=== PATIENT | female | born 1950 | race Two or more races ===

== ENCOUNTER 2025-07-06 12:03 | Inpatient (IN) | payer OTHER ==
[~2025-07-06] VITALS: Ht 170.2 cm; Wt 85.3 kg
[~2025-07-06 12:03] MED LIST: ATACAND4 MG PO; CANDESARTAN CILE4 MG PO; ELIQUIS5 MG PO; LEVOXYL25 MCG PO; PLAVIX75 MG PO; SINGULAIR 10MG10 MG PO; SYNTHROID50 MCG PO; ZYRTEC10 MG PO; [UNRECOGNIZED DRUG - OTHER] PO
[2025-07-06] MEDS ORDERED: CARDIZEM LA240 MG (12:18)
[2025-07-06] MEDS ORDERED: 0.9 % SODIUM CHLORIDE 1,000 ML IV SCH (12:45)
[2025-07-06] MEDS ORDERED: FAMOTIDINE/PF 20 MG/2 ML VIAL IV PUSH ONE (13:00)
[2025-07-06] MEDS ORDERED: ONDANSETRON HCL 2 MG/ML VIAL IV ONE ×2 (13:00→23:40)
[2025-07-06 13:06] LABS: BASO % 0.2 % (0.1-1.2); EOS # 0.00 (0.04-0.54); EOS % 0.0 % (0.7-7.0); LYMPH # 0.49 (1.18-3.74); LYMPH % 2.1 % (19.3-53.1); MEAN PLATELET VOLUME 11.80 fl (9.4-12.4); MONO # 0.60 (0.24-0.82); MONO % 2.6 % (4.7-12.5); NEUT # 22.01 (1.56-6.13); NEUT % 94.0 % (34.0-71.1); RED CELL DISTRIBUTION WIDTH 13.4 % (11.6-14.4)
[2025-07-06 13:29] LABS: BUN CREA RATIO 10.0 (7.0-25.0); CREATININE SERUM 1.42 mg/dL (0.55-1.02); GFR 36.16; GLUCOSE FASTING 113.0 mg/dL (65-100); OSMOLALITY SERUM 281.0 MOSM/KG (275-295)
[2025-07-06 13:49] LABS: COVID-19 AG NEGATIVE (NEGATIVE)
[2025-07-06 14:05] LABS: URINE APPEARANCE Clear; URINE BILIRRUBIN Negative (NEGATIVE); URINE BLOOD Small; URINE COLOR Yellow; URINE GLUCOSE Negative (NEGATIVE); URINE KETONE Negative (NEGATIVE); URINE LEUKOCYTE Negative; URINE NITRATE Negative; URINE PROTEIN Negative (NEGATIVE); URINE UROBILINOGEN 0.2 E.U./dl
[2025-07-06 14:07] LABS: URINE BACTERIA 21.6 uL (0.0-1933); URINE EPITHELIAL CELLS 2.6 uL (0.0-38.8); URINE RBC 61.4 uL (0.0-20.8); URINE WBC 22.5 uL (0.0-23.2)
[2025-07-06 14:33] LABS: URINE CAST 0.00 uL (0.0-1.40)
[2025-07-06] MEDS ORDERED: DILTIAZEM HCL 125 MG in 0.9 % SODIUM CHLORIDE 100 ML IV SCH (16:00)
[2025-07-06] MEDS ORDERED: DILTIAZEM HCL 25 MG/5 ML VIAL IV ONE (16:00)
[2025-07-06] MEDS ORDERED: LABETALOL HCL 200 MG/40 ML VIAL IV ONE (16:30)
[2025-07-06] MEDS ORDERED: levoFLOXacin IN DEXTROSE 5 % 500MG/100ML PIGGYBAG IV ONE (17:00)
[2025-07-06] MEDS ORDERED: LEVALBUTEROL HCL 1.25 MG/3 ML SOLUTION IH ONE (17:00)
[2025-07-06 18:22] LABS: ALT/SGPT 36.0 U/L (12-78); AST/SGOT 26.0 U/L (15-37); BILIRUBIN TOTAL 0.8 mg/dL (0.3-1.2); BUN CREA RATIO 10.0 (7.0-25.0); CREATININE SERUM 1.39 mg/dL (0.55-1.02); GFR 37.06; GLOBULINA 3.5 G/DL (2.4-3.5); GLUCOSE FASTING 100.0 mg/dL (65-100); OSMOLALITY SERUM 280.0 MOSM/KG (275-295)
[2025-07-06 19:35] LABS: ABG PH 7.433 (7.35-7.45)
[2025-07-06 19:36] LABS: ABG PO2 66.6 mmHg (80-100); BICARBONATE 22.5 mmol/l (23-25); o2 32 %
[2025-07-06] MEDS ORDERED: TAMSULOSIN HCL 0.4 MG CAP PO SCH (20:44)
[2025-07-06] MEDS ORDERED: 0.9 % SODIUM CHLORIDE 1,000 ML IV ONE (20:45)
[2025-07-06] MEDS ORDERED: TRAMADOL HCL 50 MG TABLET PO PRN (20:45)
[2025-07-06] MEDS ORDERED: ACETAMINOPHEN 500 MG GEL..CAP PO PRN (20:45)
[2025-07-06] MEDS ORDERED: TRAMADOL HCL 50 MG TABLET PO ONE (20:45)
[2025-07-06] MEDS ORDERED: IPRATROPIUM BROMIDE 0.5 MG/2.5 ML AMPUL.NEB IH SCH (20:50)
[2025-07-06] MEDS ORDERED: ENOXAPARIN SODIUM 80 MG/0.8 ML SYRINGE SUBCUTANEO SCH (21:00)
[2025-07-06 22:26] LABS: INR 1.1
[2025-07-07] VITALS (8 sets, daily range): BP systolic 103–138; BP diastolic 62–67; O2SAT 95–100
[2025-07-07] MEDS ORDERED: LEVOTHYROXINE SODIUM 25 MCG TABLET PO SCH (06:00)
[2025-07-07 07:52] LABS: CHOL HDL RATIO 1.9 (0-5.0); HDL 49.0 mg/dl (40-60); LDL 22.0 mg/dl (0-130); VLDL 22.0 (0-39)
[2025-07-07 07:54] LABS: TSH 0.333 uIU/mL (0.358-3.74)
[2025-07-07] MEDS ORDERED: FAMOTIDINE/PF 20 MG in 0.9 % SODIUM CHLORIDE 8 ML IV PUSH SCH (09:00)
[2025-07-07] MEDS ORDERED: VANCOMYCIN HCL 1,000 MG VIAL IV SCH (17:00)
[2025-07-08] VITALS (8 sets, daily range): BP systolic 117–153; BP diastolic 72–83; O2SAT 93–98
[2025-07-08 08:03] LABS: BASO % 0.3 % (0.1-1.2); EOS # 0.14 (0.04-0.54); EOS % 0.8 % (0.7-7.0); LYMPH # 1.70 (1.18-3.74); LYMPH % 9.4 % (19.3-53.1); MEAN PLATELET VOLUME 13.10 fl (9.4-12.4); MONO # 1.47 (0.24-0.82); MONO % 8.1 % (4.7-12.5); NEUT # 14.73 (1.56-6.13); NEUT % 81.0 % (34.0-71.1); RED CELL DISTRIBUTION WIDTH 13.9 % (11.6-14.4)
[2025-07-08 08:06] LABS: ALT/SGPT 33.0 U/L (12-78); AST/SGOT 30.0 U/L (15-37); BILIRUBIN TOTAL 0.54 mg/dL (0.3-1.2); BUN CREA RATIO 15.0 (7.0-25.0); CREATININE SERUM 0.93 mg/dL (0.55-1.02); GFR 58.93; GLOBULINA 3.2 G/DL (2.4-3.5); GLUCOSE FASTING 82.0 mg/dL (65-100); OSMOLALITY SERUM 286.0 MOSM/KG (275-295)
[2025-07-08] MEDS ORDERED: METOPROLOL TARTRATE 25 MG TABLET PO SCH (17:09)
[2025-07-09] VITALS (7 sets, daily range): BP systolic 134–158; BP diastolic 65–83; O2SAT 94–98
[2025-07-10] VITALS: O2SAT 98
[2025-07-10] MEDS ORDERED: METOPROLOL TARTRATE 25 MG TABLET PO SCH (01:00)
[2025-07-10 01:36] VITALS: BP 141/82; O2SAT 96
[2025-07-10 06:43] LABS: BASO % 0.5 % (0.1-1.2); EOS # 0.29 (0.04-0.54); EOS % 2.8 % (0.7-7.0); LYMPH # 2.54 (1.18-3.74); LYMPH % 24.3 % (19.3-53.1); MEAN PLATELET VOLUME 12.60 fl (9.4-12.4); MONO # 0.97 (0.24-0.82); MONO % 9.3 % (4.7-12.5); NEUT # 6.55 (1.56-6.13); NEUT % 62.7 % (34.0-71.1); RED CELL DISTRIBUTION WIDTH 13.7 % (11.6-14.4)
[2025-07-10] MEDS ORDERED: METOPROLOL TARTRATE 50 MG TABLET PO SCH (09:00)
[2025-07-10] MEDS ORDERED: VANCOMYCIN HCL 1,000 MG VIAL IV SCH (09:00)
[2025-07-10 09:32] VITALS: O2SAT 95
[2025-07-10 09:58] VITALS: BP 159/85; O2SAT 95
[2025-07-10 16:00] VITALS: BP 158/84; O2SAT 95
[2025-07-10 19:17] VITALS: O2SAT 99
[2025-07-11] VITALS (10 sets, daily range): BP systolic 121–141; BP diastolic 59–98; O2SAT 94–97
[2025-07-11] MEDS ORDERED: DILTIAZEM HCL 125MG/25ML VIAL IV STA (10:17)
[2025-07-11] MEDS ORDERED: DILTIAZEM HCL 30 MG TABLET PO SCH (13:00)
[2025-07-11] MEDS ORDERED: CETIRIZINE HCL 5 MG/5 ML ML PO SCH (21:00)
[2025-07-11] MEDS ORDERED: MONTELUKAST SODIUM 10 MG TABLET PO SCH (21:00)
[2025-07-12] VITALS (9 sets, daily range): BP systolic 135–144; BP diastolic 68–83; O2SAT 89–96
[2025-07-12 07:18] LABS: BASO % 0.5 % (0.1-1.2); EOS # 0.35 (0.04-0.54); EOS % 3.2 % (0.7-7.0); LYMPH # 2.83 (1.18-3.74); LYMPH % 26.3 % (19.3-53.1); MEAN PLATELET VOLUME 12.20 fl (9.4-12.4); MONO # 0.90 (0.24-0.82); MONO % 8.4 % (4.7-12.5); NEUT # 6.58 (1.56-6.13); NEUT % 61.0 % (34.0-71.1); RED CELL DISTRIBUTION WIDTH 13.7 % (11.6-14.4)
[2025-07-12 08:06] LABS: ALT/SGPT 72.0 U/L (12-78); AST/SGOT 56.0 U/L (15-37); BILIRUBIN TOTAL 0.52 mg/dL (0.3-1.2); BUN CREA RATIO 16.0 (7.0-25.0); CREATININE SERUM 0.75 mg/dL (0.55-1.02); GFR 75.54; GLOBULINA 3.1 G/DL (2.4-3.5); GLUCOSE FASTING 92.0 mg/dL (65-100); OSMOLALITY SERUM 290.0 MOSM/KG (275-295)
[2025-07-12] MEDS ORDERED: APIXABAN 5 MG TABLET PO SCH (17:00)
[2025-07-13] VITALS (9 sets, daily range): BP systolic 135–154; BP diastolic 60–76; O2SAT 95–98
[2025-07-14] VITALS (7 sets, daily range): BP systolic 123–131; BP diastolic 64–71; O2SAT 87–97
[2025-07-15 00:24] VITALS: O2SAT 95
[2025-07-15 01:00] VITALS: BP 129/66; O2SAT 95
[2025-07-15 06:22] VITALS: O2SAT 94
[2025-07-15 08:33] VITALS: BP 111/80; O2SAT 95
[2025-07-15 13:08] VITALS: O2SAT 97
== END 2025-07-15 22:45 | disposition home or self-care (01) | DRG 659 ==
LOC: ER 12:03 → SURG 21:16 → ICU-2 21:16 → SURG 07-07 00:20
PROVIDERS: Emergency Medicine; General Practice; Internal Medicine Infectious Disease; Student in an Organized Health Care Education/Training Program; Urology; ADMIT Internal Medicine; ATTEND Internal Medicine
PROC: BW25ZZZ Computerized Tomography (CT Scan) of Chest, Abdomen and Pelvis (ICD-10-PCS; 2025-07-06)
PROC: 0T768DZ Dilation of Right Ureter with Intraluminal Device, Via Natural or Artificial Opening Endoscopic (ICD-10-PCS; principal; 2025-07-06 22:15)
PROC: B246ZZZ Ultrasonography of Right and Left Heart (ICD-10-PCS; 2025-07-07)
PROC: 4A12X4Z Monitoring of Cardiac Electrical Activity, External Approach (ICD-10-PCS; 2025-07-07)
PROC: 05HC33Z Insertion of Infusion Device into Left Basilic Vein, Percutaneous Approach (ICD-10-PCS; 2025-07-11)
DX: N20.1 Calculus of ureter (principal); A41.9 Sepsis, unspecified organism; N17.9 Acute kidney failure, unspecified; N39.0 Urinary tract infection, site not specified; D72.829 Elevated white blood cell count, unspecified; I48.91 Unspecified atrial fibrillation; B95.2 Enterococcus as the cause of diseases classified elsewhere; I10 Essential (primary) hypertension; Z85.3 Personal history of malignant neoplasm of breast